=== PATIENT | male | born 1985 | race Caucasian/White ===

== ENCOUNTER 2018-11-25 15:39 | Emergency (ER) | payer SELFPAY ==
--- OUTSIDE RECORDS SUMMARY | 2018-11-25 15:44 | XMS REPORT ---
:1985 [facility] Address [address] [place] [address] Dr. Gonzales [address] [place] [id number] Care Team Providers Name Role Phone Unavailable Unavailable Unavailable Payers Payer Name Policy Type Policy Number Effective Date Expiration Date Problems This patient has no known problems. Allergies, Adverse Reactions, Alerts Allergy Allergy Status Severity Reaction(s) Onset Inactive Treating Comments Name Type Date Date Clinician No Known DA Active U 2018-07 Allergies -24 00:00:0 0 Medications This patient has no known medications.
--- NOTE | 2018-11-25 17:21 | ER ---
Nurse's Notes [facility] Name: Sae Rizzo Age: 33 yrs Sex: Male : 1985 Arrival Date: 11/25/2018 Time: 15:44 Bed 11 Private MD: Diagnosis: Other viral infections of unspecified site Presentation: 11/25 15:59 Presenting complaint: Patient states: cough, sore throat, fever that began this aa5 morning. Transition of care: patient was not received from another setting of care. Onset of symptoms was November 25, 2018. Risk Assessment: Do you want to hurt yourself or someone else? Patient reports no desire to harm self or others. Initial Sepsis Screen: Does the patient meet any 2 criteria? No. Patient's initial sepsis screen is negative. Does the patient have a suspected source of infection? No. Patient's initial sepsis screen is negative. Care prior to arrival: None. 15:59 Method Of Arrival: Ambulatory aa5 15:59 Acuity: EDIN 4 aa5 Triage Assessment: 17:25 General: Appears in no apparent distress. Behavior is calm, cooperative. GI: No iw deficits noted. Historical: - Allergies: 16:00 No Known Allergies; aa5 - PMHx: 16:00 None; aa5 - PSHx: 16:00 None; aa5 - Immunization history:: Flu vaccine is not up to date. - Social history:: Smoking status: Patient/guardian denies using tobacco. - Ebola Screening: : No symptoms or risks identified at this time. Screenin:47 Abuse screen: Denies threats or abuse. Denies injuries from another. Nutritional iw screening: No deficits noted. Tuberculosis screening: No symptoms or risk factors identified. Fall Risk None identified. Assessment: 17:00 General: Appears in no apparent distress. Behavior is calm, cooperative. Pain: iw 17:00 GI: Bowel sounds present X 4 quads. Abd is soft and non tender X 4 quads. iw Vital Signs: 16:00 BP 135 / 68; Pulse 97; Resp 18 S; Temp 99.5(TE); Pulse Ox 97% on R/A; Weight 81.65 kg aa5 (R); Height 6 ft. 0 in. (182.88 cm) (R); Pain 3/10; 16:00 Body Mass Index 24.41 (81.65 kg, 182.88 cm) aa5 ED Course: 15:44 Patient arrived in ED. mr 15:59 Triage completed. aa5 15:59 Arm band placed on. aa5 16:47 Tammy Glynn, RN is Primary Nurse. iw 16:55 Nic Osman PA is PHCP. [facility] 16:55 Jeffrey Espinal MD is Attending Physician. jmm 17:10 Patient has correct armband on for positive identification. iw 17:47 No provider procedures requiring assistance completed. Patient did not have IV access iw during this emergency room visit. Administered Medications: No medications were administered Outcome: 17:21 Discharge ordered by MD. jmm 17:47 Discharged to home ambulatory. iw 17:47 Condition: good 17:47 Discharge instructions given to patient, Instructed on discharge instructions, follow up and referral plans. medication usage, Demonstrated understanding of instructions, follow-up care, medications, Prescriptions given X 2. 17:48 Patient left the ED. iw Signatures: Nic Osman PA PA jmm RiveraTrudi mr Tammy Glynn, RN RN Ifrah Loomis, RN RN aa
--- NOTE | 2018-11-25 17:21 | EDPHYS ---
Physician Documentation [facility] Name: Sae Rizzo Age: 33 yrs Sex: Male : 1985 Arrival Date: 11/25/2018 Time: 15:44 Bed 11 Private MD: ED Physician Jeffrey Espinal HPI: 11/25 17:15 This 33 yrs old Male presents to ER via Ambulatory with complaints of Fever, jmm Cough. 17:15 The patient reports fever, not measured (subjective). Onset: The symptoms/episode jmm began/occurred today. Associated signs and symptoms: Pertinent positives: cough, sore throat. This is a 33 year old male with no chronic medical conditions that presents to the ED with complaints of cough, headache, fever, body aches, sore throat beginning today. Patient denies shortness of breath or chest pain. . Historical: - Allergies: 16:00 No Known Allergies; aa5 - PMHx: 16:00 None; aa5 - PSHx: 16:00 None; aa5 - Immunization history:: Flu vaccine is not up to date. - Social history:: Smoking status: Patient/guardian denies using tobacco. - Ebola Screening: : No symptoms or risks identified at this time. ROS: 17:15 Neck: Negative for injury, pain, and swelling. jmm 17:15 Abdomen/GI: Negative for abdominal pain, nausea, vomiting, diarrhea, and constipation, Back: Negative for injury and pain. 17:15 Constitutional: Positive for body aches, fever. 17:15 ENT: Positive for sore throat. 17:15 Cardiovascular: Negative for chest pain. 17:15 Respiratory: Positive for cough, Negative for shortness of breath. 17:15 Neuro: Positive for headache. 17:15 All other systems are negative. Exam: 17:15 Constitutional: This is a well developed, well nourished patient who is awake, alert, jmm and in no acute distress. Head/Face: atraumatic. Eyes: EOMI, no conjunctival erythema appreciated 17:15 Abdomen/GI: Non distended, soft Back: Normal ROM Skin: General appearance color normal MS/ Extremity: Moves all extremities, no obvious deformities appreciated, no edema noted to the lower extremities Neuro: Awake and alert, normal gait Psych: Behavior is normal, Mood is normal, Patient is cooperative and pleasant 17:15 ENT: Posterior pharynx: erythema, that is mild. 17:15 Neck: ROM/movement: is normal, is supple. 17:15 Cardiovascular: Rate: normal, Rhythm: regular. 17:15 Respiratory: the patient does not display signs of respiratory distress, Respirations: normal, Breath sounds: are clear throughout. Vital Signs: 16:00 BP 135 / 68; Pulse 97; Resp 18 S; Temp 99.5(TE); Pulse Ox 97% on R/A; Weight 81.65 kg aa5 (R); Height 6 ft. 0 in. (182.88 cm) (R); Pain 3/10; 16:00 Body Mass Index 24.41 (81.65 kg, 182.88 cm) aa5 MDM: 17:10 Patient medically screened. lorenzo 17:15 Data reviewed: vital signs, nurses notes. Counseling: I had a detailed discussion with lorenzo the patient and/or guardian regarding: the historical points, exam findings, and any diagnostic results supporting the discharge/admit diagnosis, lab results, the need for outpatient follow up, to return to the emergency department if symptoms worsen or persist or if there are any questions or concerns that arise at home. ED course: Patient is alert and non toxic in appearance. Has no signs of resp distress. Neck is supple, I do not suspect meningitis. Lungs CTA. I do not suspect pneumonia. HPI appears consistent with influenza or a similar viral illness. Patient is given return precautions. Patient understood and agrees with the plan of care. . 11/25 16:00 Order name: Flu; Complete Time: 16:56 aa5 11/25 16:00 Order name: Strep; Complete Time: 16:56 aa5 11/25 16:48 Order name: Throat Culture EDMS Administered Medications: No medications were administered Disposition: 18:20 Co-signature as Attending Physician, Jeffrey Espinal MD. rn Disposition: 11/25/18 17:21 Discharged to Home. Impression: Other viral infections of unspecified site. - Condition is Stable. - Discharge Instructions: Viral Respiratory Infection. - Prescriptions for Ibuprofen 800 mg Oral Tablet - take 1 tablet by ORAL route every 8 hours As needed take with food; 30 tablet. benzonatate 200 mg Oral Capsule - take 1 capsule by ORAL route 3 times per day as needed; 20 capsule. - Medication Reconciliation Form, Thank You Letter, Antibiotic Education, Prescription Opioid Use, Work release form form. - Follow up: Private Physician; When: 1 - 2 days; Reason: Recheck today's complaints, Continuance of care, Re-evaluation by your physician. Signatures: Dispatcher [employer] EDMS Nic Osman PA PA jmm Williams, Irene, RN Jeffrey Bernal MD MD rn Calderon, Audri, RN RN aa5 Corrections: (The following items were deleted from the chart) 17:48 17:21 11/25/2018 17:21 Discharged to Home. Impression: Other viral infections of iw unspecified site. Condition is Stable. Forms are Medication Reconciliation Form, Thank You Letter, Antibiotic Education, Prescription Opioid Use. Follow up: Private Physician; When: 1 - 2 days; Reason: Recheck today's complaints, Continuance of care, Re-evaluation by your physician. lorenzo
== END 2018-11-25 17:48 | disposition home or self-care (01) ==
LOC: ER 15:39
DX: B33.8 Other specified viral diseases (principal)
CPT/HCPCS: 87070; 87081; 87804; 99282

== ENCOUNTER 2018-12-14 13:04 | Emergency (ER) | payer SELFPAY ==
--- OUTSIDE RECORDS SUMMARY | 2018-12-14 13:11 | XMS REPORT ---
:1985 [facility] Address [address] [place] [address] Dr. Gonzales [address] [place] [id number] Care Team Providers Name Role Phone Unavailable [...]
--- NOTE | 2018-12-14 14:29 | ER ---
Nurse's Notes [facility] Name: Sae Rizzo Age: 33 yrs Sex: Male : 1985 Arrival Date: 12/14/2018 Time: 13:06 Bed 27 Private MD: None, None Diagnosis: Vomiting;Diarrhea, unspecified Presentation: 12/14 13:22 Presenting complaint: Patient states: nausea/vomiting/diarrhea that began this morning aa5 around 0300. Pt denies abd pain. Pt states "It's gone now but my job wanted me to come in". Transition of care: patient was not received from another setting of care. Onset of symptoms was December 14, 2018. Risk Assessment: Do you want to hurt yourself or someone else? Patient reports no desire to harm self or others. Initial Sepsis Screen: Does the patient meet any 2 criteria? No. Patient's initial sepsis screen is negative. Does the patient have a suspected source of infection? No. Patient's initial sepsis screen is negative. Care prior to arrival: None. 13:22 Acuity: EDIN 5 aa5 13:22 Method Of Arrival: Ambulatory aa5 Triage Assessment: 15:06 GI: Reports nausea. tl3 Historical: - Allergies: 13:23 No Known Allergies; aa5 - PMHx: 13:23 None; aa5 - PSHx: 13:23 None; aa5 - Immunization history:: Flu vaccine is not up to date. - Social history:: Smoking status: Patient/guardian denies using tobacco. - Ebola Screening: : No symptoms or risks identified at this time. - Family history:: not pertinent. Screenin:03 Abuse screen: Denies threats or abuse. Nutritional screening: No deficits noted. tl3 Tuberculosis screening: No symptoms or risk factors identified. Fall Risk None identified. Assessment: 15:03 General: Appears in no apparent distress. comfortable, well groomed, well developed, tl3 well nourished, Behavior is calm, cooperative, appropriate for age. Pain: Complains of pain in abdomen. Neuro: Level of Consciousness is awake, alert, obeys commands, Oriented to person, place, time, situation, Appropriate for age. Cardiovascular: Patient's skin is warm and dry. GI: Abdomen is flat. Vital Signs: 13:23 BP 132 / 73; Pulse 75; Resp 16 S; Temp 98.1(TE); Pulse Ox 98% on R/A; Weight 83.91 kg aa5 (R); Height 6 ft. 0 in. (182.88 cm) (R); Pain 0/10; 13:23 Body Mass Index 25.09 (83.91 kg, 182.88 cm) aa5 ED Course: 13:06 Patient arrived in ED. mr 13:06 None, None is Private Physician. mr 13:22 Triage completed. aa5 13:22 Arm band placed on. aa5 13:31 Vicky Mayes, RN is Primary Nurse. tl3 13:38 Emmett Le MD is Attending Physician. [facility] 15:03 Patient has correct armband on for positive identification. tl3 15:03 No provider procedures requiring assistance completed. Patient did not have IV access tl3 during this emergency room visit. Administered Medications: 15:03 Drug: Zofran 4 mg Route: PO; tl3 15:05 Follow up: Response: Medication administered at discharge. tl3 15:03 Drug: Cipro 500 mg Route: PO; tl3 15:05 Follow up: Response: Medication administered at discharge. tl3 Outcome: 14:29 Discharge ordered by . [facility] 15:03 Discharged to home ambulatory. tl3 15:03 Condition: stable 15:03 Discharge instructions given to patient. 15:07 Patient left the ED. tl3 Signatures: Emmett Le MD MD cha Rivera, Mary mr Loomis, Ifrah RN RN 5 Vicky Mayes, RN RN tl3 Corrections: (The following items were deleted from the chart) 13:24 13:23 Pulse 75bpm; Resp 16bpm; Spontaneous; Pulse Ox 98% RA; Temp 98.1F Temporal; 83.91 aa5 kg Reported; Height 6 ft. 0 in. Reported; BMI: 25.0; Pain 0/10; aa5
--- NOTE | 2018-12-14 14:29 | EDPHYS ---
Physician Documentation [facility] Name: Sae Rizzo Age: 33 yrs Sex: Male : 1985 Arrival Date: 12/14/2018 Time: 13:06 Bed 27 Private MD: None, None ED Physician Emmett Le HPI: 12/14 14:24 This 33 yrs old Male presents to ER via Ambulatory with complaints of shan Vomiting/Diarrhea, Medical Clearance. 14:24 The patient presents to the emergency department with nausea, vomiting, that is shan intermittent, diarrhea, that is intermittent. Onset: The symptoms/episode began/occurred 2 day(s) ago. Possible causes: unknown. The symptoms are aggravated by nothing. Associated signs and symptoms: The patient has no apparent associated signs or symptoms. Severity of symptoms: At their worst the symptoms were mild in the emergency department the symptoms are unchanged. The patient has not experienced similar symptoms in the past. Historical: - Allergies: 13:23 No Known Allergies; aa5 - PMHx: 13:23 None; aa5 - PSHx: 13:23 None; aa5 - Immunization history:: Flu vaccine is not up to date. - Social history:: Smoking status: Patient/guardian denies using tobacco. - Ebola Screening: : No symptoms or risks identified at this time. - Family history:: not pertinent. ROS: 14:24 Constitutional: Negative for fever, chills, and weight loss, Eyes: Negative for injury, shan pain, redness, and discharge, ENT: Negative for injury, pain, and discharge, Neck: Negative for injury, pain, and swelling, Cardiovascular: Negative for chest pain, palpitations, and edema, Respiratory: Negative for shortness of breath, cough, wheezing, and pleuritic chest pain, Back: Negative for injury and pain, : Negative for injury, bleeding, discharge, and swelling, MS/Extremity: Negative for injury and deformity, Skin: Negative for injury, rash, and discoloration, Neuro: Negative for headache, weakness, numbness, tingling, and seizure, Psych: Negative for depression, anxiety, suicide ideation, homicidal ideation, and hallucinations, Allergy/Immunology: Negative for hives, rash, and allergies, Endocrine: Negative for neck swelling, polydipsia, polyuria, polyphagia, and marked weight changes, Hematologic/Lymphatic: Negative for swollen nodes, abnormal bleeding, and unusual bruising. 14:24 Abdomen/GI: Positive for abdominal pain, nausea and vomiting, diarrhea. Exam: 14:24 Constitutional: This is a well developed, well nourished patient who is awake, alert, shan and in no acute distress. Head/Face: Normocephalic, atraumatic. Eyes: Pupils equal round and reactive to light, extra-ocular motions intact. Lids and lashes normal. Conjunctiva and sclera are non-icteric and not injected. Cornea within normal limits. Periorbital areas with no swelling, redness, or edema. ENT: Nares patent. No nasal discharge, no septal abnormalities noted. Tympanic membranes are normal and external auditory canals are clear. Oropharynx with no redness, swelling, or masses, exudates, or evidence of obstruction, uvula midline. Mucous membranes moist. Neck: Trachea midline, no thyromegaly or masses palpated, and no cervical lymphadenopathy. Supple, full range of motion without nuchal rigidity, or vertebral point tenderness. No Meningismus. Chest/axilla: Normal chest wall appearance and motion. Nontender with no deformity. No lesions are appreciated. Cardiovascular: Regular rate and rhythm with a normal S1 and S2. No gallops, murmurs, or rubs. Normal PMI, no JVD. No pulse deficits. Respiratory: Lungs have equal breath sounds bilaterally, clear to auscultation and percussion. No rales, rhonchi or wheezes noted. No increased work of breathing, no retractions or nasal flaring. Back: No spinal tenderness. No costovertebral tenderness. Full range of motion. Male : Normal genitalia with no discharge or lesions. Skin: Warm, dry with normal turgor. Normal color with no rashes, no lesions, and no evidence of cellulitis. MS/ Extremity: Pulses equal, no cyanosis. Neurovascular intact. Full, normal range of motion. Neuro: Awake and alert, GCS 15, oriented to person, place, time, and situation. Cranial nerves II-XII grossly intact. Motor strength 5/5 in all extremities. Sensory grossly intact. Cerebellar exam normal. Normal gait. Psych: Awake, alert, with orientation to person, place and time. Behavior, mood, and affect are within normal limits. 14:24 Abdomen/GI: Inspection: abdomen appears normal, Bowel sounds: active, hyperactive, Palpation: mild abdominal tenderness, in all quadrants, Liver: no appreciated palpable abnormalities, Hernia: not appreciated. Vital Signs: 13:23 BP 132 / 73; Pulse 75; Resp 16 S; Temp 98.1(TE); Pulse Ox 98% on R/A; Weight 83.91 kg aa5 (R); Height 6 ft. 0 in. (182.88 cm) (R); Pain 0/10; 13:23 Body Mass Index 25.09 (83.91 kg, 182.88 cm) aa5 MDM: 13:39 Patient medically screened. [facility] 14:28 Data reviewed: vital signs, nurses notes. [facility] Administered Medications: 15:03 Drug: Zofran 4 mg Route: PO; tl3 15:05 Follow up: Response: Medication administered at discharge. 3 15:03 Drug: Cipro 500 mg Route: PO; tl3 15:05 Follow up: Response: Medication administered at discharge. 3 Disposition: 12/14/18 14:29 Discharged to Home. Impression: Vomiting, Diarrhea, unspecified. - Condition is Stable. - Discharge Instructions: Food Choices to Help Relieve Diarrhea, Adult, Diarrhea, Adult, Nausea and Vomiting, Adult, Nausea and Vomiting, Adult, [id number], Diarrhea, Adult, [id number]. - Prescriptions for Cipro 500 mg Oral Tablet - take 1 tablet by ORAL route every 12 hours for 3 days; 6 tablet. Zofran 4 mg Oral Tablet - take 1 tablet by ORAL route every 12 hours As needed; 14 tablet. - Medication Reconciliation Form, Thank You Letter, Antibiotic Education, Prescription Opioid Use, Work release form form. - Follow up: Private Physician; When: 2 - 3 days; Reason: Recheck today's complaints, Continuance of care, Re-evaluation by your physician. - Problem is new. - Symptoms have improved. Signatures: Emmett Le MD MD cha Calderon, Audri, RN RN aa5 Vicky Mayes RN RN tl3 Corrections: (The following items were deleted from the chart) 15:07 14:29 12/14/2018 14:29 Discharged to Home. Impression: Vomiting; Diarrhea, unspecified. tl3 Condition is Stable. Forms are Medication Reconciliation Form, Thank You Letter, Antibiotic Education, Prescription Opioid Use. Follow up: Private Physician; When: 2 - 3 days; Reason: Recheck today's complaints, Continuance of care, Re-evaluation by your physician. Problem is new. Symptoms have improved. shan
[2018-12-14] MEDS ORDERED: CIPROFLOXACIN HCL 500 MG TAB ONE (15:02)
[2018-12-14] MEDS ORDERED: ONDANSETRON 4 MG (ODT) TAB ONE (15:02)
== END 2018-12-14 15:07 | disposition home or self-care (01) ==
LOC: ER 13:04
DX: R19.7 Diarrhea, unspecified (principal)
CPT/HCPCS: 99283

== ENCOUNTER 2019-02-02 15:34 | Emergency (ER) | payer SELFPAY ==
--- OUTSIDE RECORDS SUMMARY | 2019-02-02 15:36 | XMS REPORT ---
:1985 [facility] Address [address] [place] [address] Dr. Gonzales [address] [place] [id number] Care Team Providers Name Role Phone Unavailable [...]
[2019-02-02] MEDS ORDERED: NA CHLORIDE 0.9% 1,000 ML ONE (16:17)
[2019-02-02 16:30] LABS: Absolute Lymphocytes (CBC) 1.9 K/uL (0.7-4.9); Absolute Monocytes 0.7 K/uL (0.1-1.3); Absolute Neutrophil 8.4 K/uL (1.8-8.0); Basophils % 0.6 % (0-1.3); Eosinophils % 4.1 % (0-4.4); Hematocrit 41.1 % (39.6-49.0); Lymphocytes % 16.1 % (15.3-44.8); MPV 8.8 fL (7.6-11.3); Monocytes % 5.7 % (3.3-12.3); RBC Red Blood Cell Count 4.41 M/uL (4.33-5.43)
[2019-02-02 16:42] LABS: ALT/SGPT 39 U/L (12-78); AST/SGOT 33 U/L (15-37); Albumin 3.9 g/dL (3.4-5.0); Alkaline Phosphatase 76 U/L (45-117); BUN Blood Urea Nitrogen 13 mg/dL (7-18); Bicarbonate 28 mmol/L (21-32); Bilirubin Direct < 0.1 mg/dL (0-0.2); Bilirubin Total 0.4 mg/dL (0.2-1.0); Glucose Level 93 mg/dL (74-106); Lipase 95 U/L (73-393); Potassium 4.1 mmol/L (3.5-5.1); Protein, Total 7.4 g/dL (6.4-8.2); Sodium Level 140 mmol/L (136-145)
--- NOTE | 2019-02-02 17:00 | ER ---
Nurse's Notes [facility] Name: Sae Rizzo Age: 34 yrs Sex: Male : 1985 Arrival Date: 02/02/2019 Time: 15:37 Bed 28 Private MD: None, None Diagnosis: Noninfective gastroenteritis and colitis, unspecified Presentation: 02/02 15:38 Presenting complaint: Patient states: vomiting/diarrhea/chills since 0300 today. sv Transition of care: patient was not received from another setting of care. Onset of symptoms was February 02, 2019. Care prior to arrival: None. 15:38 Method Of Arrival: Ambulatory sv 15:38 Acuity: EDIN 3 sv 15:55 Risk Assessment: Do you want to hurt yourself or someone else? Patient reports no mg2 desire to harm self or others. Initial Sepsis Screen: Does the patient meet any 2 criteria? No. Patient's initial sepsis screen is negative. Does the patient have a suspected source of infection? No. Patient's initial sepsis screen is negative. Triage Assessment: 15:38 General: Appears in no apparent distress. comfortable, well developed, Behavior is sv calm, cooperative, appropriate for age. Pain: Complains of pain in abdomen Pain currently is 1 out of 10 on a pain scale. Quality of pain is described as aching. Neuro: Level of Consciousness is awake, alert, obeys commands, Oriented to person, place, time, situation, Gait is steady. Respiratory: Respiratory effort is even, unlabored, Respiratory pattern is regular, symmetrical. GI: Reports diarrhea, vomiting. Historical: - Allergies: 15:38 No Known Allergies; sv - PMHx: 15:38 None; sv - PSHx: 15:38 None; sv - Immunization history:: Flu vaccine status is unknown. - Social history:: Smoking status: unknown. - Ebola Screening: : No symptoms or risks identified at this time. Screenin:54 Abuse screen: Denies threats or abuse. Denies injuries from another. Nutritional mg2 screening: No deficits noted. Tuberculosis screening: No symptoms or risk factors identified. Fall Risk None identified. Assessment: 16:57 General: Appears in no apparent distress. comfortable, Behavior is calm, cooperative. mg2 Pain: Denies pain. Neuro: Level of Consciousness is awake, alert, obeys commands, Oriented to person, place, time, situation. Cardiovascular: Capillary refill < 3 seconds Patient's skin is warm and dry. Respiratory: Airway is patent Respiratory effort is even, unlabored, Respiratory pattern is regular, symmetrical. GI: Abdomen is non-distended, Reports nausea, vomiting. : No signs and/or symptoms were reported regarding the genitourinary system. EENT: No signs and/or symptoms were reported regarding the EENT system. Derm: Skin is intact, is healthy with good turgor, Skin is pink, warm \T\ dry. normal. Musculoskeletal: Circulation, motion, and sensation intact. Capillary refill < 3 seconds. 17:11 Reassessment: Patient states feeling better. Patient states symptoms have improved. mg2 Vital Signs: 15:38 BP 136 / 84; Pulse 93; Resp 18; Temp 99.1(O); Pulse Ox 96% ; Weight 83.91 kg; Height 6 sv ft. 0 in. (182.88 cm); Pain 1/10; 17:03 BP 124 / 84; Pulse 82; Resp 18; Pulse Ox 100% on R/A; Pain 0/10; mg2 15:38 Body Mass Index 25.09 (83.91 kg, 182.88 cm) sv ED Course: 15:37 Patient arrived in ED. mr 15:38 None, None is Private Physician. mr 15:38 Triage completed. sv 15:39 Arm band placed on. sv 15:54 Tanvi Cassidy FNP-C [facility]. kb 15:54 Emmett Le MD is Attending Physician. kb 15:54 Master Bateman, ZHENG is Primary Nurse. mg2 15:55 Patient has correct armband on for positive identification. Door closed. Warm blanket mg2 given. 17:00 No provider procedures requiring assistance completed. Inserted saline lock: 20 gauge mg2 in right antecubital area, using aseptic technique. Blood collected. 17:11 IV discontinued, intact, bleeding controlled, No redness/swelling at site. Pressure mg2 dressing applied. Administered Medications: 16:14 Drug: NS 0.9% 1000 ml Route: IV; Rate: 1000 ml; Site: right antecubital; mg2 17:10 Follow up: Response: No adverse reaction; IV Status: Completed infusion mg2 16:57 Drug: Zofran 4 mg Route: IVP; Site: right antecubital; mg2 17:10 Follow up: Response: No adverse reaction; Marked relief of symptoms; Vomiting decreased mg2 Outcome: 16:59 Discharge ordered by MD. bill 17:11 Discharged to home ambulatory. mg2 17:11 Condition: good 17:11 Discharge instructions given to patient, Instructed on discharge instructions, follow up and referral plans. medication usage, Demonstrated understanding of instructions, follow-up care, medications, Prescriptions given X 1. 17:11 Patient left the ED. mg2 Signatures: Tanvi Cassidy, [employer]-C [employer]-Nakita Edmonds, RN RN Trudi Littlejohn Michele, RN RN mg2
--- NOTE | 2019-02-02 17:00 | EDPHYS ---
Physician Documentation [facility] Name: Sae Rizzo Age: 34 yrs Sex: Male : 1985 Arrival Date: 02/02/2019 Time: 15:37 Bed 28 Private MD: None, None ED Physician Emmett Le HPI: 02/02 16:37 This 34 yrs old Male presents to ER via Ambulatory with complaints of kb Vomiting/Diarrhea. 16:37 The patient presents to the emergency department with nausea, vomiting, diarrhea. kb Onset: The symptoms/episode began/occurred this morning, at 03:00. Possible causes: unknown. The symptoms are aggravated by nothing. The symptoms are alleviated by nothing. Associated signs and symptoms: Pertinent positives: diarrhea, fever, nausea, vomiting. Severity of symptoms: At their worst the symptoms were moderate in the emergency department the symptoms have improved. The patient has not experienced similar symptoms in the past. The patient has not recently seen a physician. Pt reports fever, n/v/d that started at 0300 and has gotten better. Denies abd pain. Historical: - Allergies: 15:38 No Known Allergies; sv - PMHx: 15:38 None; sv - PSHx: 15:38 None; sv - Immunization history:: Flu vaccine status is unknown. - Social history:: Smoking status: unknown. - Ebola Screening: : No symptoms or risks identified at this time. ROS: 16:37 ENT: Negative for injury, pain, and discharge, Neck: Negative for injury, pain, and kb swelling, Cardiovascular: Negative for chest pain, palpitations, and edema, Respiratory: Negative for shortness of breath, cough, wheezing, and pleuritic chest pain, MS/Extremity: Negative for injury and deformity, Skin: Negative for injury, rash, and discoloration, Neuro: Negative for headache, weakness, numbness, tingling, and seizure. 16:37 Constitutional: Positive for fever, Negative for body aches, chills, fatigue, malaise, poor PO intake, weight loss. 16:37 Abdomen/GI: Positive for nausea, vomiting, and diarrhea, Negative for abdominal pain. Exam: 16:37 Constitutional: This is a well developed, well nourished patient who is awake, alert, kb and in no acute distress. Head/Face: Normocephalic, atraumatic. ENT: Nares patent. No nasal discharge, no septal abnormalities noted. Tympanic membranes are normal and external auditory canals are clear. Oropharynx with no redness, swelling, or masses, exudates, or evidence of obstruction, uvula midline. Mucous membranes moist. Neck: Trachea midline, no thyromegaly or masses palpated, and no cervical lymphadenopathy. Supple, full range of motion without nuchal rigidity, or vertebral point tenderness. No Meningismus. Chest/axilla: Normal chest wall appearance and motion. Nontender with no deformity. No lesions are appreciated. Cardiovascular: Regular rate and rhythm with a normal S1 and S2. No gallops, murmurs, or rubs. Normal PMI, no JVD. No pulse deficits. Respiratory: Lungs have equal breath sounds bilaterally, clear to auscultation and percussion. No rales, rhonchi or wheezes noted. No increased work of breathing, no retractions or nasal flaring. Abdomen/GI: Soft, non-tender, with normal bowel sounds. No distension or tympany. No guarding or rebound. No evidence of tenderness throughout. Skin: Warm, dry with normal turgor. Normal color with no rashes, no lesions, and no evidence of cellulitis. MS/ Extremity: Pulses equal, no cyanosis. Neurovascular intact. Full, normal range of motion. Neuro: Awake and alert, GCS 15, oriented to person, place, time, and situation. Cranial nerves II-XII grossly intact. Motor strength 5/5 in all extremities. Sensory grossly intact. Cerebellar exam normal. Normal gait. Vital Signs: 15:38 BP 136 / 84; Pulse 93; Resp 18; Temp 99.1(O); Pulse Ox 96% ; Weight 83.91 kg; Height 6 sv ft. 0 in. (182.88 cm); Pain 1/10; 17:03 BP 124 / 84; Pulse 82; Resp 18; Pulse Ox 100% on R/A; Pain 0/10; mg2 15:38 Body Mass Index 25.09 (83.91 kg, 182.88 cm) sv MDM: 15:54 Patient medically screened. kb 16:38 Data reviewed: vital signs, nurses notes. Data interpreted: Pulse oximetry: on room air kb is 96 %. Interpretation: normal. 16:50 Counseling: I had a detailed discussion with the patient and/or guardian regarding: the kb historical points, exam findings, and any diagnostic results supporting the discharge/admit diagnosis, lab results, the need for outpatient follow up, a family practitioner, to return to the emergency department if symptoms worsen or persist or if there are any questions or concerns that arise at home. 02/02 16:02 Order name: Basic Metabolic Panel; Complete Time: 16:46 kb 02/02 16:02 Order name: CBC with Diff; Complete Time: 16:46 kb 02/02 16:02 Order name: Hepatic Function; Complete Time: 16:46 kb 02/02 16:02 Order name: Lipase; Complete Time: 16:46 kb 02/02 16:02 Order name: Flu; Complete Time: 16:46 kb 02/02 16:02 Order name: IV Saline Lock; Complete Time: 16:14 kb 02/02 16:02 Order name: Labs collected and sent; Complete Time: 16:14 kb 02/02 16:46 Order name: PO challenge; Complete Time: 17:10 kb Administered Medications: 16:14 Drug: NS 0.9% 1000 ml Route: IV; Rate: 1000 ml; Site: right antecubital; mg2 17:10 Follow up: Response: No adverse reaction; IV Status: Completed infusion mg2 16:57 Drug: Zofran 4 mg Route: IVP; Site: right antecubital; mg2 17:10 Follow up: Response: No adverse reaction; Marked relief of symptoms; Vomiting decreased mg2 Disposition: 02/03 06:40 Co-signature as Attending Physician, Emmett Le MD I agree with the assessment and shan plan of care. Disposition: 02/02/19 16:59 Discharged to Home. Impression: Noninfective gastroenteritis and colitis, unspecified. - Condition is Stable. - Discharge Instructions: Food Choices to Help Relieve Diarrhea, Adult, Viral Gastroenteritis, Adult, [id number]. - Prescriptions for Zofran 4 mg Oral Tablet - take 1 tablet by ORAL route every 6 hours As needed; 20 tablet. - Work release form, Medication Reconciliation Form, Thank You Letter, Antibiotic Education, Prescription Opioid Use form. - Follow up: Emergency Department; When: As needed; Reason: Worsening of condition. Follow up: Private Physician; When: 2 - 3 days; Reason: Recheck today's complaints, Continuance of care, Re-evaluation by your physician. Signatures: Dispatcher [employer] EDMS Tanvi Cassidy, MANAGER EMPLOYMENT-C MANAGER EMPLOYMENT-Ckb Nakita Mendoza, RN RN Emmett Sandoval MD MD cha Gardose, Michele, RN RN mg2 Corrections: (The following items were deleted from the chart) 02/02 17:11 16:59 02/02/2019 16:59 Discharged to Home. Impression: Noninfective gastroenteritis and mg2 colitis, unspecified. Condition is Stable. Discharge Instructions: Food Choices to Help Relieve Diarrhea, Adult, Viral Gastroenteritis, Adult, [id number]. Prescriptions for Zofran 4 mg Oral Tablet - take 1 tablet by ORAL route every 6 hours As needed; 20 tablet. and Forms are Medication Reconciliation Form, Thank You Letter, Antibiotic Education, Prescription Opioid Use. Follow up: Emergency Department; When: As needed; Reason: Worsening of condition. Follow up: Private Physician; When: 2 - 3 days; Reason: Recheck today's complaints, Continuance of care, Re-evaluation by your physician. kb
[2019-02-02] MEDS ORDERED: ONDANSETRON 4 MG/2 ML VIAL ONE (17:01)
== END 2019-02-02 17:11 | disposition home or self-care (01) ==
LOC: ER 15:34
DX: K52.9 Noninfective gastroenteritis and colitis, unspecified (principal)
CPT/HCPCS: 36415; 80048; 80076; 83690; 85025; 87804; 96361; 96374; 99284; J2405; J7030

== ENCOUNTER 2019-05-11 10:57 | Emergency (ER) | payer SELFPAY ==
--- OUTSIDE RECORDS SUMMARY | 2019-05-11 10:59 | XMS REPORT ---
:1985 [facility] Address [address] [place] [address] Dr. Gonzales [address] [place] [id number] Care Team Providers Name Role Phone Unavailable [...]
[2019-05-11 12:15] LABS: Absolute Lymphocytes (CBC) 1.7 K/uL (0.7-4.9); Basophils % 0.5 % (0-1.3); Hematocrit 39.7 % (39.6-49.0); MPV 8.3 fL (7.6-11.3); RBC Red Blood Cell Count 4.27 M/uL (4.33-5.43)
[2019-05-11 12:37] LABS: ALT/SGPT 38 U/L (12-78); AST/SGOT 20 U/L (15-37); Alkaline Phosphatase 84 U/L (45-117); BUN Blood Urea Nitrogen 18 mg/dL (7-18); Bicarbonate 31 mmol/L (21-32); Bilirubin Direct < 0.1 mg/dL (0-0.2); Bilirubin Total 0.3 mg/dL (0.2-1.0); Glucose Level 102 mg/dL (74-106); Lipase 99 U/L (73-393); Potassium 3.7 mmol/L (3.5-5.1); Protein, Total 7.6 g/dL (6.4-8.2); Sodium Level 142 mmol/L (136-145)
--- NOTE | 2019-05-11 13:37 | ER ---
Nurse's Notes [facility] Name: Sae Rizzo Age: 34 yrs Sex: Male : 1985 Arrival Date: 05/11/2019 Time: 11:00 Bed 20 Private MD: Diagnosis: Vomiting;Abdominal and pelvic pain Presentation: 05/11 11:08 Presenting complaint: Patient states: "I woke up with a fever this morning, then I ss threw up. It's happened 3 or 4 times within the last two months." Pt did not measure his temperature at home, but states he was shaking and self administered TheraFlu at 0430 this morning. Transition of care: patient was not received from another setting of care. Onset of symptoms is unknown. Risk Assessment: Do you want to hurt yourself or someone else? Patient reports no desire to harm self or others. Initial Sepsis Screen: Does the patient meet any 2 criteria? HR > 90 bpm. Does the patient have a suspected source of infection? No. Patient's initial sepsis screen is negative. Care prior to arrival: None. 11:08 Method Of Arrival: Ambulatory ss 11:08 Acuity: EDIN 4 ss Historical: - Allergies: 11:11 No Known Allergies; ss - Home Meds: 11:11 None [Active]; ss - PMHx: 11:11 None; ss - PSHx: 11:11 None; ss - Immunization history:: Adult Immunizations up to date. - Social history:: Smoking status: Patient/guardian denies using tobacco. - Ebola Screening: : Patient denies exposure to infectious person Patient denies travel to an Ebola-affected area in the 21 days before illness onset. Screenin:45 Abuse screen: Denies threats or abuse. Nutritional screening: No deficits noted. rb1 Tuberculosis screening: No symptoms or risk factors identified. Fall Risk None identified. Assessment: 11:45 General: Appears in no apparent distress. comfortable, Reports chills for fever for rb1 feeling ill for. Pain: Complains of pain in generalized bodyaches Pain currently is 6 out of 10 on a pain scale. Neuro: Level of Consciousness is awake, alert, obeys commands, Oriented to person, place, time, situation. Cardiovascular: Capillary refill < 3 seconds is brisk in bilateral fingers. Respiratory: Airway is patent Respiratory effort is even, unlabored, Respiratory pattern is regular, symmetrical. GI: Abdomen is flat, Reports nausea, vomiting. : No signs and/or symptoms were reported regarding the genitourinary system. Derm: Skin is pink, warm \\T\\ dry. 12:44 Reassessment: Patient appears in no apparent distress at this time. No changes from rb1 previously documented assessment. 13:33 Reassessment: Patient appears in no apparent distress at this time. Patient and/or rb1 family updated on plan of care and expected duration. Pain level reassessed. Patient is alert, oriented x 3, equal unlabored respirations, skin warm/dry/pink. Vital Signs: 11:11 BP 138 / 68; Pulse 93; Resp 15; Temp 98.1(O); Pulse Ox 99% on R/A; Weight 97.52 kg; ss Height 6 ft. 0 in. (182.88 cm); Pain 0/10; 12:00 BP 110 / 75; Pulse 88; Resp 16; Temp 98.3(TE); Pulse Ox 97% on R/A; Pain 0/10; rb1 13:00 BP 129 / 58; Pulse 81; Resp 17; Temp 98.4(TE); Pulse Ox 98% on R/A; Pain 0/10; rb1 13:45 BP 119 / 77; Pulse 80; Resp 19; Temp 98.3(O); Pulse Ox 98% on R/A; Pain 0/10; rb1 11:11 Body Mass Index 29.16 (97.52 kg, 182.88 cm) ED Course: 11:00 Patient arrived in ED. as 11:10 Triage completed. ss 11:11 Arm band placed on left wrist. ss 11:43 Nikunj Palomino, ZHENG is Primary Nurse. ae4 11:45 Evan Hall MD is Attending Physician. kdr 11:45 Patient has correct armband on for positive identification. Bed in low position. Call rb1 light in reach. Side rails up X 1. Pulse ox on. NIBP on. 11:55 Inserted saline lock: 22 gauge in right antecubital area, using aseptic technique. rb1 Blood collected. 13:57 No provider procedures requiring assistance completed. IV discontinued, intact, rb1 bleeding controlled, No redness/swelling at site. Pressure dressing applied. Administered Medications: No medications were administered Outcome: 13:37 Discharge ordered by . kdr 13:57 Patient left the ED. rb1 13:57 Discharged to home ambulatory. rb1 13:57 Condition: stable 13:57 Discharge instructions given to patient, Instructed on discharge instructions, follow up and referral plans. medication usage, Demonstrated understanding of instructions, follow-up care, medications, Prescriptions given X 3. Signatures: Evan Hall MD MD kdr Sonja Mistry Shelby, RN RN ss Deepali Murphy RN RN rb1 Nikunj Palomino RN RN ae4
--- NOTE | 2019-05-11 13:38 | EDPHYS ---
Physician Documentation [facility] Name: Sae Rizzo Age: 34 yrs Sex: Male : 1985 Arrival Date: 05/11/2019 Time: 11:00 Bed 20 Private MD: ED Physician Evan Hall HPI: 05/11 12:14 This 34 yrs old Male presents to ER via Ambulatory with complaints of Fever, kdr Vomiting. 12:14 The patient reports fever, not measured (subjective). Onset: The symptoms/episode kdr began/occurred suddenly, this morning. Modifying factors: there are no obvious modifying factors. Associated signs and symptoms: Pertinent positives: abdominal pain, nausea, night sweats, vomiting, Pertinent negatives: altered mental status, arthralgias, backache, chest pain, cough, earache, headache, myalgias, runny nose, sinus congestion, sinus drainage, skin rash. Historical: - Allergies: 11:11 No Known Allergies; ss - Home Meds: 11:11 None [Active]; ss - PMHx: 11:11 None; ss - PSHx: 11:11 None; ss - Immunization history:: Adult Immunizations up to date. - Social history:: Smoking status: Patient/guardian denies using tobacco. - Ebola Screening: : Patient denies exposure to infectious person Patient denies travel to an Ebola-affected area in the 21 days before illness onset. ROS: 12:14 Constitutional: Negative for fever, chills, and weight loss, Eyes: Negative for injury, kdr pain, redness, and discharge, Neck: Negative for injury, pain, and swelling, Cardiovascular: Negative for chest pain, palpitations, and edema, Respiratory: Negative for shortness of breath, cough, wheezing, and pleuritic chest pain, Back: Negative for injury and pain, : Negative for injury, bleeding, discharge, and swelling, MS/Extremity: Negative for injury and deformity, Skin: Negative for injury, rash, and discoloration, Neuro: Negative for headache, weakness, numbness, tingling, and seizure activity. Psych: Negative for depression, anxiety, suicide ideation, homicidal ideation, and hallucinations, Allergy/Immunology: Negative for hives, rash, and allergies, Endocrine: Negative for neck swelling, polydipsia, polyuria, polyphagia, and marked weight changes, Hematologic/Lymphatic: Negative for swollen nodes, abnormal bleeding, and unusual bruising. 12:14 Abdomen/GI: Positive for abdominal pain, nausea and vomiting, Negative for constipation, abdominal distension, anorexia, dysphagia, black/tarry stool, rectal pain, rectal bleeding, bowel incontinence. Exam: 12:14 Constitutional: This is a well developed, well nourished patient who is awake, alert, kdr and in no acute distress. Head/Face: Normocephalic, atraumatic. Eyes: Pupils equal round and reactive to light, extra-ocular motions intact. Lids and lashes normal. Conjunctiva and sclera are non-icteric and not injected. Cornea within normal limits. Periorbital areas with no swelling, redness, or edema. Neck: Trachea midline, no thyromegaly or masses palpated, and no cervical lymphadenopathy. Supple, full range of motion without nuchal rigidity, or vertebral point tenderness. No Meningismus. Chest/axilla: Normal chest wall appearance and motion. Nontender with no deformity. No lesions are appreciated. Cardiovascular: Regular rate and rhythm with a normal S1 and S2. No gallops, murmurs, or rubs. Normal PMI, no JVD. No pulse deficits. Respiratory: Lungs have equal breath sounds bilaterally, clear to auscultation and percussion. No rales, rhonchi or wheezes noted. No increased work of breathing, no retractions or nasal flaring. Abdomen/GI: Soft, non-tender, with normal bowel sounds. No distension or tympany. No guarding or rebound. No evidence of tenderness throughout. Back: No spinal tenderness. No costovertebral tenderness. Full range of motion. Skin: Warm, dry with normal turgor. Normal color with no rashes, no lesions, and no evidence of cellulitis. MS/ Extremity: Pulses equal, no cyanosis. Neurovascular intact. Full, normal range of motion. Neuro: Awake and alert, GCS 15, oriented to person, place, time, and situation. Cranial nerves II-XII grossly intact. Motor strength 5/5 in all extremities. Sensory grossly intact. Cerebellar exam normal. Normal gait. Psych: Awake, alert, with orientation to person, place and time. Behavior, mood, and affect are within normal limits. Vital Signs: 11:11 BP 138 / 68; Pulse 93; Resp 15; Temp 98.1(O); Pulse Ox 99% on R/A; Weight 97.52 kg; ss Height 6 ft. 0 in. (182.88 cm); Pain 0/10; 12:00 BP 110 / 75; Pulse 88; Resp 16; Temp 98.3(TE); Pulse Ox 97% on R/A; Pain 0/10; rb1 13:00 BP 129 / 58; Pulse 81; Resp 17; Temp 98.4(TE); Pulse Ox 98% on R/A; Pain 0/10; rb1 13:45 BP 119 / 77; Pulse 80; Resp 19; Temp 98.3(O); Pulse Ox 98% on R/A; Pain 0/10; rb1 11:11 Body Mass Index 29.16 (97.52 kg, 182.88 cm) ss MDM: 12:14 Data reviewed: vital signs, nurses notes. Counseling: I had a detailed discussion with [facility] the patient and/or guardian regarding: the historical points, exam findings, and any diagnostic results supporting the discharge/admit diagnosis, lab results, radiology results. 13:37 Patient medically screened. [facility] 05/11 11:46 Order name: Basic Metabolic Panel; Complete Time: 12:49 [facility] 05/11 11:46 Order name: CBC with Diff; Complete Time: 12:49 [facility] 05/11 11:46 Order name: Creatinine for Radiology; Complete Time: 12:49 [facility] 05/11 11:46 Order name: Hepatic Function; Complete Time: 12:49 [facility] 05/11 11:46 Order name: Lipase; Complete Time: 12:49 [facility] 05/11 11:46 Order name: IV Saline Lock; Complete Time: 12:04 [facility] 05/11 11:46 Order name: Labs collected and sent; Complete Time: 12:04 [facility] Administered Medications: No medications were administered Disposition: 05/11/19 13:37 Discharged to Home. Impression: Vomiting, Abdominal and pelvic pain. - Condition is Stable. - Discharge Instructions: Nausea and Vomiting, Adult, [id number], Abdominal Pain, Adult, [id number]. - Prescriptions for Bentyl 20 mg Oral Tablet - take 1 tablet by ORAL route every 6 hours As needed; 20 tablet. Protonix 40 mg Oral Tablet - take 1 tablet by ORAL route once daily; 30 tablet. Zofran 4 mg Oral Tablet - take 1 tablet by ORAL route every 12 hours As needed; 6 tablet. - Medication Reconciliation Form, Thank You Letter, Antibiotic Education, Work release form form. - Follow up: Private Physician; When: 2 - 3 days; Reason: If symptoms return, Further diagnostic work-up, Recheck today's complaints, Continuance of care, Re-evaluation by your physician. - Problem is new. - Symptoms have improved. Signatures: Dispatcher [employer] EDNE Evan Hall MD MD kdr Sarina Jansen RN RN ss Deepali Murphy, ZHENG RN rb1 Corrections: (The following items were deleted from the chart) 12:06 11:48 Urine Test ordered. kdr rb1 13:57 13:37 05/11/2019 13:37 Discharged to Home. Impression: Vomiting; Abdominal and pelvic rb1 pain. Condition is Stable. Forms are Medication Reconciliation Form, Thank You Letter, Antibiotic Education, Prescription Opioid Use. Follow up: Private Physician; When: 2 - 3 days; Reason: If symptoms return, Further diagnostic work-up, Recheck today's complaints, Continuance of care, Re-evaluation by your physician. Problem is new. Symptoms have improved. kdr
== END 2019-05-11 13:57 | disposition home or self-care (01) ==
LOC: ER 10:57
DX: R11.10 Vomiting, unspecified (principal); R10.2 Pelvic and perineal pain
CPT/HCPCS: 36415; 80048; 80076; 83690; 85025; 99284

== ENCOUNTER 2019-10-01 10:32 | Emergency (ER) | payer SELFPAY ==
--- OUTSIDE RECORDS SUMMARY | 2019-10-01 10:34 | XMS REPORT ---
:1985 [facility] Address [address] [place] [address] Dr. Gonzales [address] [place] [address] Care Team Providers Name Role Phone Unavailable [...]
--- NOTE | 2019-10-01 13:03 | EDPHYS ---
Physician Documentation [facility] Name: Sae Rizzo Age: 34 yrs Sex: Male : 1985 Arrival Date: 10/01/2019 Time: 10:33 Bed 14 Private MD: TYLOR Physician Emmett Le HPI: 10/01 11:39 This 34 yrs old Male presents to ER via Ambulatory with complaints of Foot snw Pain. 11:39 The patient presents with pain, swelling. The complaints affect the lateral aspect of snw left foot. Context: The problem was sustained at work, resulted from an unknown cause, the patient can partially bear weight, the patient is able to ambulate, no new shoes, working in same boots as usual. Onset: The symptoms/episode began/occurred suddenly, 3 day(s) ago, and became worse. Associated signs and symptoms: Pertinent positives: swelling. Severity of symptoms: At their worst the symptoms were moderate. The patient has experienced a previous episode, to opposite foot. The patient has not recently seen a physician. Historical: - Allergies: 11:05 No Known Allergies; jl7 - Home Meds: 11:05 None [Active]; jl7 - PMHx: 11:05 None; jl7 - PSHx: 11:05 None; jl7 - Immunization history:: Adult Immunizations not up to date. - Social history:: Smoking status: Patient/guardian denies using tobacco. - Ebola Screening: : No symptoms or risks identified at this time. ROS: 11:36 Constitutional: Negative for fever, chills, and weight loss, Eyes: Negative for injury, snw pain, redness, and discharge, ENT: Negative for injury, pain, and discharge, Neck: Negative for injury, pain, and swelling, Cardiovascular: Negative for chest pain, palpitations, and edema, Respiratory: Negative for shortness of breath, cough, wheezing, and pleuritic chest pain, Abdomen/GI: Negative for abdominal pain, nausea, vomiting, diarrhea, and constipation, Back: Negative for injury and pain, : Negative for injury, bleeding, discharge, and swelling, Skin: Negative for injury, rash, and discoloration, Neuro: Negative for headache, weakness, numbness, tingling, and seizure. 11:36 MS/extremity: Positive for pain, tenderness, of the lateral side of left foot and dorsum of left foot. Exam: 11:36 Constitutional: This is a well developed, well nourished patient who is awake, alert, snw and in no acute distress. Head/Face: Normocephalic, atraumatic. Eyes: Pupils equal round and reactive to light, extra-ocular motions intact. Lids and lashes normal. Conjunctiva and sclera are non-icteric and not injected. Cornea within normal limits. Periorbital areas with no swelling, redness, or edema. ENT: Nares patent. No nasal discharge, no septal abnormalities noted. Tympanic membranes are normal and external auditory canals are clear. Oropharynx with no redness, swelling, or masses, exudates, or evidence of obstruction, uvula midline. Mucous membranes moist. Neck: Trachea midline, no thyromegaly or masses palpated, and no cervical lymphadenopathy. Supple, full range of motion without nuchal rigidity, or vertebral point tenderness. No Meningismus. Chest/axilla: Normal chest wall appearance and motion. Nontender with no deformity. No lesions are appreciated. Cardiovascular: Regular rate and rhythm with a normal S1 and S2. No gallops, murmurs, or rubs. Normal PMI, no JVD. No pulse deficits. Respiratory: Lungs have equal breath sounds bilaterally, clear to auscultation and percussion. No rales, rhonchi or wheezes noted. No increased work of breathing, no retractions or nasal flaring. Abdomen/GI: Soft, non-tender, with normal bowel sounds. No distension or tympany. No guarding or rebound. No evidence of tenderness throughout. Back: No spinal tenderness. No costovertebral tenderness. Full range of motion. Skin: Warm, dry with normal turgor. Normal color with no rashes, no lesions, and no evidence of cellulitis. Neuro: Awake and alert, GCS 15, oriented to person, place, time, and situation. Cranial nerves II-XII grossly intact. Motor strength 5/5 in all extremities. Sensory grossly intact. Cerebellar exam normal. Normal gait. Psych: Awake, alert, with orientation to person, place and time. Behavior, mood, and affect are within normal limits. 11:36 Musculoskeletal/extremity: Extremities: grossly normal except: noted in the lateral side of left foot and dorsum of left foot: swelling, tenderness, ROM: no acute changes, Circulation is intact in all extremities. Sensation intact. Compartment Syndrome exam of affected extremity: is normal. Vital Signs: 11:05 BP 142 / 77; Pulse 83; Resp 16 S; Temp 98.7(O); Pulse Ox 98% on R/A; Weight 99.79 kg jl7 (R); Height 6 ft. 0 in. (182.88 cm) (R); Pain 7/10; 12:09 BP 116 / 64; Pulse 79; Resp 16 S; Pulse Ox 99% on R/A; ca1 13:15 BP 118 / 75; Pulse 76; Resp 17 S; Pulse Ox 99% on R/A; ca1 11:05 Body Mass Index 29.84 (99.79 kg, 182.88 cm) jl7 MDM: 11:28 Patient medically screened. snw 13:04 Data reviewed: vital signs, nurses notes. Data interpreted: Pulse oximetry: on room air snw is 99 %. Interpretation: normal. Counseling: I had a detailed discussion with the patient and/or guardian regarding: the historical points, exam findings, and any diagnostic results supporting the discharge/admit diagnosis, radiology results, the need for outpatient follow up, to return to the emergency department if symptoms worsen or persist or if there are any questions or concerns that arise at home. Special discussion: Based on the history and exam findings, there is no indication for further emergent testing or inpatient evaluation. I discussed with the patient/guardian the need to see the orthopedic surgeon for further evaluation of the symptoms. I discussed with the patient/guardian the need to see the primary care provider for further evaluation of the symptoms. 10/01 11:33 Order name: Foot Left 3 View XRAY; Complete Time: 13:12 snw 10/01 13:01 Order name: Post-op Orthopedic Shoe; Complete Time: 13:24 snw Administered Medications: 13:10 Drug: TORadol 30 mg Route: IM; Site: right deltoid; ca1 13:24 Follow up: Response: Medication administered at discharge. ca1 Disposition: 15:17 Co-signature as Attending Physician, Emmett Le MD I agree with the assessment and shan plan of care. Disposition: 10/01/19 13:02 Discharged to Home. Impression: Strain of unspecified muscle and tendon at ankle and foot level, left foot. - Condition is Stable. - Discharge Instructions: Muscle Strain, Repetitive Strain Injuries, RICE for Routine Care of Injuries, Rehydration, Adult, Foot Pain. - Prescriptions for Diclofenac Sodium 75 mg Oral Tablet Sustained Release - take 1 tablet by ORAL route 2 times per day; 30 tablet. - Work release form, Medication Reconciliation Form, Thank You Letter, Antibiotic Education, Prescription Opioid Use form. - Follow up: Private Physician; When: 2 - 3 days; Reason: Recheck today's complaints, Continuance of care, Re-evaluation by your physician. Follow up: Emergency Department; When: As needed; Reason: Worsening of condition. Signatures: Dispatcher [employer] EDMS Emmett Le MD MD cha Therrien, Shelly, POLLUTION CONTROL ENGINEER-C POLLUTION CONTROL ENGINEER-Csnw Eileen Joseph, RN RN jl7 Keiko Layton RN RN ca1 Corrections: (The following items were deleted from the chart) 13:26 13:02 10/01/2019 13:02 Discharged to Home. Impression: Strain of unspecified muscle and ca1 tendon at ankle and foot level, left foot. Condition is Stable. Forms are Medication Reconciliation Form, Thank You Letter, Antibiotic Education, Prescription Opioid Use. Follow up: Private Physician; When: 2 - 3 days; Reason: Recheck today's complaints, Continuance of care, Re-evaluation by your physician. Follow up: Emergency Department; When: As needed; Reason: Worsening of condition. snw
--- NOTE | 2019-10-01 13:03 | ER ---
Nurse's Notes [facility] Name: Sae Rizzo Age: 34 yrs Sex: Male : 1985 Arrival Date: 10/01/2019 Time: 10:33 Bed 14 Private MD: Diagnosis: Strain of unspecified muscle and tendon at ankle and foot level, left foot Presentation: 10/01 11:04 Presenting complaint: Patient states: Top of left foot is hurting for 3 days, denies jl7 trauma. Transition of care: patient was not received from another setting of care. Onset of symptoms was September 28, 2019. Risk Assessment: Do you want to hurt yourself or someone else? Patient reports no desire to harm self or others. Initial Sepsis Screen: Does the patient meet any 2 criteria? No. Patient's initial sepsis screen is negative. Does the patient have a suspected source of infection? No. Patient's initial sepsis screen is negative. Care prior to arrival: None. 11:04 Method Of Arrival: Ambulatory [facility] 11:04 Acuity: EDIN 4 jl7 Triage Assessment: 11:05 General: Appears in no apparent distress. uncomfortable, Behavior is calm, cooperative, jl7 appropriate for age. Pain: Complains of pain in dorsum of left foot Pain currently is 7 out of 10 on a pain scale. Historical: - Allergies: 11:05 No Known Allergies; jl7 - Home Meds: 11:05 None [Active]; jl7 - PMHx: 11:05 None; jl7 - PSHx: 11:05 None; jl7 - Immunization history:: Adult Immunizations not up to date. - Social history:: Smoking status: Patient/guardian denies using tobacco. - Ebola Screening: : No symptoms or risks identified at this time. Screenin:36 Abuse screen: Denies threats or abuse. Denies injuries from another. Nutritional ca1 screening: No deficits noted. Tuberculosis screening: No symptoms or risk factors identified. Fall Risk None identified. Assessment: 11:36 General: Appears in no apparent distress. comfortable, Behavior is calm, cooperative, ca1 appropriate for age. Pain: Complains of pain in dorsum of left foot Pain currently is 8 out of 10 on a pain scale. Quality of pain is described as shooting, Pain began 2-3 days ago. Aggravated by weight bearing. Neuro: Level of Consciousness is awake, alert, obeys commands, Oriented to person, place, time, situation, Appropriate for age. Derm: Skin is intact, is healthy with good turgor, Skin is pink, warm \T\ dry. Musculoskeletal: Circulation, motion, and sensation intact. Capillary refill < 3 seconds, Range of motion: intact in all extremities. 12:31 Reassessment: Patient appears in no apparent distress at this time. Patient is alert, ca1 oriented x 3, equal unlabored respirations, skin warm/dry/pink. Xray at bedside. 13:24 Reassessment: Patient appears in no apparent distress at this time. Patient is alert, ca1 oriented x 3, equal unlabored respirations, skin warm/dry/pink. Vital Signs: 11:05 BP 142 / 77; Pulse 83; Resp 16 S; Temp 98.7(O); Pulse Ox 98% on R/A; Weight 99.79 kg jl7 (R); Height 6 ft. 0 in. (182.88 cm) (R); Pain 7/10; 12:09 BP 116 / 64; Pulse 79; Resp 16 S; Pulse Ox 99% on R/A; ca1 13:15 BP 118 / 75; Pulse 76; Resp 17 S; Pulse Ox 99% on R/A; ca1 11:05 Body Mass Index 29.84 (99.79 kg, 182.88 cm) [facility] ED Course: 10:33 Patient arrived in ED. as 10:41 Jayde Mayfield FNP-C [facility]. snw 10:41 Emmett Le MD is Attending Physician. snw 11:05 Triage completed. jl 11:05 Arm band placed on right wrist. Patient placed in waiting room, in view of staff 7 members, Patient notified of wait time. 11:28 Keiko Layton, ZHENG is Primary Nurse. ca1 11:36 Patient has correct armband on for positive identification. Bed in low position. Call ca1 light in reach. Side rails up X 1. Pulse ox on. NIBP on. 11:36 No provider procedures requiring assistance completed. Patient did not have IV access ca1 during this emergency room visit. 12:58 Foot Left 3 View XRAY In Process Unspecified. EDMS 13:20 Ortho shoe applied to left foot. ca1 Administered Medications: 13:10 Drug: TORadol 30 mg Route: IM; Site: right deltoid; ca1 13:24 Follow up: Response: Medication administered at discharge. ca1 Outcome: 13:02 Discharge ordered by . patience 13: Discharged to home ambulatory. ca1 13: Condition: stable 13:26 Discharge instructions given to patient, Instructed on discharge instructions, follow up and referral plans. medication usage, Demonstrated understanding of instructions, follow-up care, medications, Prescriptions given X 1. 13: Patient left the ED. ca1 Signatures: Dispatcher [employer] EDMS Jayde Mayfield, TECHNICAL PUBLICATIONS MANAGER-C TECHNICAL PUBLICATIONS MANAGER-Csnw Sonja Mistry Jahala RN RN jl7 Keiko Layton RN RN ca1
[2019-10-01] MEDS ORDERED: KETOROLAC 30 MG/ML INJ ONE (13:09)
--- NOTE | 2019-10-01 13:09 | RAD REPORT ---
EXAM DESCRIPTION: RAD - Foot Left 3 View - 10/01/2019 12:57 pm CLINICAL HISTORY: Left Foot pain FINDINGS: No fracture or dislocation is seen. No significant bone or joint abnormality seen
[2019-10-01 13:33] VITALS: TEMP 98.7
[2019-10-01 13:34] VITALS: O2SAT 99
[2019-10-01 13:35] VITALS: BP 118/75
== END 2019-10-01 13:26 | disposition home or self-care (01) ==
LOC: ER 10:32
DX: S96.912A Strain of unspecified muscle and tendon at ankle and foot level, left foot, initial encounter (principal); X58.XXXA Exposure to other specified factors, initial encounter
CPT/HCPCS: 96372; 99284